=== PATIENT | female | born 1950 | race Caucasian/White ===

== ENCOUNTER → 2019-02-28 08:50 | Outpatient (CLI) | payer MEDICARE, OTHER, SELFPAY ==
--- NOTE | 2019-02-28 | PATH_ITS ---
[facility] Accession Number: [id number] . 01 Material submitted: . breast - RIGHT BREAST MASS 1:00 6 CM FN . 01 Clinical history: . RIGHT BREAST MASS . 02 Diagnosis: Right Breast, Mass At 1 O'Clock, 6 CM FN, Excision: Benign breast parenchyma with adenosis, microcysts, and fibrosis consistent with fibrocystic changes. No evidence of atypical hyperplasia, in-situ or invasive carcinoma. [facility] 03/03/2019 1053 Local . 02 Comment: As part of routine advanced quality engineer, Dr. Pastor also reviewed this case and agrees with the diagnosis. . . . 02 Electronically signed: . Mikaela Calderon MD, Pathologist NPI- [id number] . 01 Gross description: . Received one formalin-filled container, labeled with the patient's name and designated right breast mass 1 o'clock 6 cm FN. The specimen is received with a plastic filter in container, sample loose in container and consists of multiple fragments of yellow-cyr soft tissue which range in size from 0.2 x 0.2 x 0.2 cm to 0.5 x 0.4 x 0.3 cm and clotted blood. The specimen is entirely submitted in one cassette. Collection date: 02/28/19. Collection time per container: 9:46 a.m. Total fixation time: Approximately 38 hours. (DC:[id number]) /[facility] 03/01/2019 0908 Local . 02 Pathologist provided ICD-10: N63.0 . 02 CPT . 718815 Performed at: [address] [facility], [place], [place] [id number] MD Clayton Guo MD Phone: [phone] Performed at: 02 [facility] [place] [address] [place] [id number] MD Mikaela Calderon MD Phone: [phone]
--- NOTE | 2019-02-28 | DI.MG.S_ITS ---
UNILATERAL RIGHT DIGITAL DIAGNOSTIC MAMMOGRAM POST-NEEDLE BIOPSY: 02/28/2019 CLINICAL: Right breast mass. Post clip placement. Comparison is made to exams dated: 01/22/2019 mammogram, 01/21/2019 mammogram, 11/06/2017 mammogram, and 10/23/2016 mammogram - [facility]. There are scattered fibroglandular elements in right breast. There is a marker clip in the appropriate position in the right breast at 1 o'clock middle depth. This marker clip placement is at the biopsy site. IMPRESSION: POST PROCEDURE MAMMOGRAM FOR MARKER PLACEMENT There was a successful marker clip placement in the right breast middle depth. This exam was interpreted at Station ID: [id number]. NOTE: For mammograms, a report in lay terms will be sent to the patient. Approximately 15% of breast malignancies will not be visualized mammographically. In the management of a palpable breast mass, a negative mammogram must not discourage biopsy of a clinically suspicious lesion. Electronically Signed By: Corey Holbrook M.D. sdh/:02/28/2019 16:53:38 ACR BI-RADS Category Post-procedure mammogram for marker placement
--- NOTE | 2019-02-28 | DI.US.S_ITS ---
ULTRASOUND GUIDED BIOPSY RIGHT BREAST USING VACUUM DEVICE WITH MARKING DEVICE INSERTED AND POST MAMMOGRAPHIC AND ULTRASOUND IMAGIN02/28/2019 CLINICAL: Right breast mass. PATIENT CONSENT: Risks (minor bleeding, infection, vasovagal reaction and repeat procedure), benefits and alternatives were explained to the patient and written informed consent was obtained. Correlation is made to exams dated: 02/28/2019 mammogram - [facility], 01/22/2019 mammogram, 01/21/2019 mammogram, 11/06/2017 mammogram, 10/23/2016 mammogram - [facility], and 10/02/2014 mammogram - [facility]. An ultrasound guided biopsy using real-time ultrasound was performed for the concerning 0.6 cm x 0.7 cm x 0.9 cm indistinct oval solid mass located in the right breast at 1 o'clock middle depth. This was described on the previous mammography and ultrasound reports. The skin was prepped in the usual manner. Local anesthetic was administered to the access site. A skin sivan was made in the breast. The abnormality was approached from the lateral aspect. A 13 gauge biopsy needle was placed adjacent to the abnormality under ultrasound guidance. Once the needle was documented to be in the correct location, four specimens were obtained using the Mammotome biopsy system. The patient received additional local anesthetic during the procedure. A Vision marker clip was inserted into the biopsy cavity. A skin closure strip and a sterile dressing were applied to the access site. Post procedure mammographic and ultrasound imaging demonstrates the location device at the targeted area. The specimens were sent to the laboratory for pathological analysis. IMPRESSION: ULTRASOUND GUIDED BIOPSY BENIGN Ultrasound guided biopsy of the 0.6 cm x 0.7 cm x 0.9 cm solid mass in the right breast at 1 o'clock middle depth was successful. Pathology indicates benign adenosis (AD), microcysts, and fibrosis. Pathology results are concordant with imaging findings. A follow-up mammogram and an ultrasound in 6 months is recommended to demonstrate stability. This exam was interpreted at Station ID: [id number]. Corey earl,krg/:03/04/2019 14:48:35
== END ==
PROVIDERS: PCP Nurse Practitioner Family; Visit Provider Family Medicine
DX: N60.21 Fibroadenosis of right breast (principal); N60.31 Fibrosclerosis of right breast
CPT/HCPCS: 19083; 77065

== ENCOUNTER → 2019-10-09 12:30 | Outpatient (CLI) | payer MEDICARE, OTHER, SELFPAY ==
--- NOTE | 2019-10-09 12:56 | DI.MG.S_ITS ---
Patient Name: TREV MORELAND date: 1950 Sex: F Attending Physician: Nikolai Indications: Date: 10/09/2019 12:39 At the request of: BRIAN CAMACHO Procedure: MM diagnostic mammo unilat RT UNILATERAL RIGHT DIGITAL DIAGNOSTIC MAMMOGRAM 3D/2D SHORT-TERM FOLLOWUP: 10/09/2019 CLINICAL: Patient returns for a 6 month follow up of the right breast. Comparison is made to exams dated: 02/28/2019 mammogram - [facility], 01/22/2019 mammogram, and 01/21/2019 mammogram - [facility]. There are scattered fibroglandular elements in right breast. There is irregular equal density architectural distortion with an indistinct margin in the right breast at 1 o'clock middle depth. This is not significantly changed. There is a biopsy clip associated with the architectural distortion. No other significant masses or calcifications are seen in the breast. IMPRESSION: INCOMPLETE: NEEDS ADDITIONAL IMAGING EVALUATION The irregular equal density architectural distortion in the right breast likely represents a previous surgery and is indeterminate. An ultrasound is recommended. This exam was interpreted at Station ID: [id number]. NOTE: For mammograms, a report in lay terms will be sent to the patient. Approximately 15% of breast malignancies will not be visualized mammographically. In the management of a palpable breast mass, a negative mammogram must not discourage biopsy of a clinically suspicious lesion. Electronically Signed By: Clayton denny/monikrad:10/09/2019 13:20:44 Continued Report - Page 2 of 2 Patient Name: TREV MORELAND date: 1950 Sex: F Attending Physician: Nikolai Indications: Date: 10/09/2019 12:39 At the request of: BRIAN CAMACHO Procedure: MM diagnostic mammo unilat RT ACR BI-RADS Category 0: Incomplete 3340F
--- NOTE | 2019-10-09 13:35 | DI.US.S_ITS ---
Patient Name: TREV MORELAND date: 1950 Sex: F Attending Physician: Nikolai Indications: Date: 10/09/2019 14:12 At the request of: BRIAN CAMACHO Procedure: US breast RT limited LIMITED ULTRASOUND OF RIGHT BREAST AND AXILLA: 10/09/2019 CLINICAL: Right breast six month follow-up. Comparison is made to exams dated: 10/09/2019 mammogram, 02/28/2019 ultrasound biopsy, 02/28/2019 mammogram - [facility], 01/22/2019 mammogram, 01/21/2019 mammogram, and 10/23/2016 mammogram - [facility]. Color flow and real-time ultrasound of the right breast 1 o'clock, and axilla regions were performed on the areas of interest. There is a 0.9 cm x 1.1 cm x 1.1 cm irregular mass with indistinct margins in the right breast at 1 o'clock posterior depth. This irregular mass is hypoechoic. This abnormality is not significantly changed in size given differences in technique and correlates with mammography findings. There is linear extension to the skin. Color flow imaging demonstrates that there is adjacent vascularity. No significant abnormalities were seen sonographically in the right axilla. IMPRESSION: BENIGN There is no sonographic evidence of malignancy. The 0.9 cm x 1.1 cm x 1.1 cm irregular mass in the right breast with linear extension to the skin is not significantly changed from the prior study given differences in technique. The associated architectural distortion on mammography also appears stable compared to prior exams. Given the recent benign biopsy, the findings are consistent with post-surgical scar. A 1 year screening mammogram is recommended. This exam was interpreted at Station ID: [id number]. Electronically Signed By: Clayton Odom M.D. ddp/:10/09/2019 14:46:17 letter sent: Normal Exam Continued Report - Page 2 of 2 Patient Name: TREV MORELAND date: 1950 Sex: F Attending Physician: Nikolai Indications: Date: 10/09/2019 14:12 At the request of: BRIAN CAMACHO Procedure: US breast RT limited Ultrasound BI-RADS: 2 Benign
== END ==
PROVIDERS: PCP Nurse Practitioner Family; Referring Provider Nurse Practitioner Family; Visit Provider Nurse Practitioner Family
DX: R92.8 Other abnormal and inconclusive findings on diagnostic imaging of breast (principal); N63.12 Unspecified lump in the right breast, upper inner quadrant
CPT/HCPCS: 76642; 77065; G0279

== ENCOUNTER → 2019-12-06 12:49 | Outpatient (CLI) | payer MEDICARE, OTHER, SELFPAY | PROVIDERS: PCP Nurse Practitioner Family; Visit Provider Student in an Organized Health Care Education/Training Program | DX: R30.0 Dysuria (principal) | CPT/HCPCS: 87077; 87086; 87186 ==

== ENCOUNTER → 2020-03-30 16:11 | Outpatient (CLI) | payer MEDICARE, OTHER, SELFPAY ==
--- NOTE | 2020-03-30 16:12 | DI.MG.S_ITS ---
BILATERAL DIGITAL SCREENING MAMMOGRAM 3D/2D WITH CAD: 03/30/2020 CLINICAL: Routine screening. Family history of breast cancer. Comparison is made to exams dated: 10/09/2019 mammogram, 02/28/2019 mammogram - [facility], 01/22/2019 mammogram, 01/21/2019 mammogram, and 11/06/2017 mammogram - [facility]. There are scattered fibroglandular elements in both breasts. Current study was also evaluated with a Computer Aided Detection (CAD) system. There is a biopsy clip in the right breast. No significant masses, calcifications, or other findings are seen in either breast. There has been no significant interval change. IMPRESSION: NEGATIVE There is no mammographic evidence of malignancy. A 1 year screening mammogram is recommended. This exam was interpreted at Station ID: [id number]. NOTE: For mammograms, a report in lay terms will be sent to the patient. Approximately 15% of breast malignancies will not be visualized mammographically. In the management of a palpable breast mass, a negative mammogram must not discourage biopsy of a clinically suspicious lesion. Electronically Signed By: Jose Antonio randolph/kanchan:03/30/2020 16:45:34 letter sent: Normal Exam ACR BI-RADS Category 1: Negative [id number]
== END ==
PROVIDERS: PCP Nurse Practitioner Family; Referring Provider Nurse Practitioner Family; Visit Provider Nurse Practitioner Family
DX: Z12.31 Encounter for screening mammogram for malignant neoplasm of breast (principal); Z80.3 Family history of malignant neoplasm of breast
CPT/HCPCS: 77063; 77067

== ENCOUNTER → 2021-04-26 08:24 | Outpatient (CLI) | payer MEDICARE, OTHER, SELFPAY ==
--- NOTE | 2021-04-26 | DI.MG.S_ITS ---
BILATERAL DIGITAL SCREENING MAMMOGRAM 3D/2D WITH CAD: 04/26/2021 CLINICAL: Routine screening. Family history of breast cancer. Comparison is made to exams dated: 03/30/2020 mammogram, 10/09/2019 mammogram, 02/28/2019 mammogram - [facility], 01/22/2019 mammogram, 01/21/2019 mammogram, and 11/06/2017 mammogram - [facility]. There are scattered fibroglandular elements in both breasts. Current study was also evaluated with a Computer Aided Detection (CAD) system. There is a biopsy clip in the right breast with stable associated architectural distortion. No significant masses, calcifications, or other findings are seen in either breast. There has been no significant interval change. IMPRESSION: NEGATIVE There is no mammographic evidence of malignancy. A 1 year screening mammogram is recommended. This exam was interpreted at Station ID: [id number]. NOTE: For mammograms, a report in lay terms will be sent to the patient. Approximately 15% of breast malignancies will not be visualized mammographically. In the management of a palpable breast mass, a negative mammogram must not discourage biopsy of a clinically suspicious lesion. Electronically Signed By: Collin Nielsen M.D. aty/:04/26/2021 12:53:13 letter sent: Normal Exam ACR BI-RADS Category 1: Negative 3341F
== END ==
PROVIDERS: PCP Nurse Practitioner Family; Referring Provider Nurse Practitioner Family; Visit Provider Nurse Practitioner Family
DX: Z12.31 Encounter for screening mammogram for malignant neoplasm of breast (principal); Z80.3 Family history of malignant neoplasm of breast
CPT/HCPCS: 77063; 77067

== ENCOUNTER → 2021-12-15 09:31 | Outpatient (CLI) | payer MEDICARE, OTHER, SELFPAY ==
[2021-12-15 11:45] LABS: COVID19 -Nasal RAPID Negative (Negative)
--- NOTE | 2021-12-15 20:31 | DI.NM.S_ITS ---
DATE OF SERVICE: 12/15/2021 PROCEDURE: Pharmacological perfusion study. INDICATION: Dizziness with underlying left bundle branch block. RADIOPHARMACEUTICAL: 25.0 millicurie technetium-99m Myoview IV was injected at stress and 11.9 millicurie technetium-99m Myoview IV was injected at rest. CARDIAC STRESS: The patient underwent IV Lexiscan perfusion study under the supervision of an attending staff using standard intravenous Lexiscan protocol. The patient remained hemodynamically stable. Resting blood pressure 142/80. Baseline rhythm sinus with left bundle branch block. During stress, there were no convincing new ischemic changes seen. Occasional PACs without any complex arrhythmias. The patient had minimal dyspnea, nausea, without any chest discomfort during Lexiscan infusion. No reversal agent was given. RAW DATA: Significant breast shadow was seen. GATED STUDY: Resting LV ejection fraction 78 and stress LV ejection fraction 89 percent without any obvious wall motion abnormalities. Resting end-diastolic volume 85 mL. TID ratio 0.81, which is within normal limits. Lung/heart ratio 0.35, which is within normal limits. MYOCARDIAL PERFUSION SCAN: Stress supine, resting supine and stress prone images were compared to each other. Stress supine and images showed minimally decreased perfusion of anteroapex. Resting supine images revealed small size, mildly decreased perfusion of distal anterior wall, anteroapex, as well as inferoapex. Stress prone images revealed mildly decreased perfusion of anteroapex. No reversible ischemia. CONCLUSION: I will call this study likely a normal myocardial perfusion study. Stress supine images appear better than resting supine images. During stress supine, there is a very small anteroapical defect. The patient has large breast shadow during raw images. There are no wall motion abnormalities. No significant perfusion defect in overall left anterior descending territory. Hence, likely this is a normal myocardial perfusion study. The patient has underlying left bundle branch block. The patient had a perfusion study in 2008, and at that time, also, there was evidence of shifting breast tissue attenuation artifact. Left ventricular function is preserved. Overall low-risk myocardial perfusion scan. Aviva Traylor - YELENA/hosea/radha doc#: [id number]/job#: [id number] dd: 12/15/2021 17:01:00 dt: 12/15/2021 20:07:00 DICTATING MD/COPIES TO: Keli Jewell MD COPIES MNE: REHAN;
== END ==
PROVIDERS: PCP Nurse Practitioner Family; Referring Provider Internal Medicine Cardiovascular Disease; Visit Provider Internal Medicine Cardiovascular Disease
DX: I44.7 Left bundle-branch block, unspecified (principal); R42 Dizziness and giddiness; Z20.822 Contact with and (suspected) exposure to COVID-19
CPT/HCPCS: 78452; 87635; 93017; A9502; J2785

== ENCOUNTER → 2024-01-26 14:58 | Outpatient (CLI) | payer MEDICARE, OTHER, SELFPAY | PROVIDERS: PCP Nurse Practitioner Family; Visit Provider Physician Assistant Surgical | DX: R30.0 Dysuria (principal) | CPT/HCPCS: 87077; 87086; 87186 ==

== ENCOUNTER → 2024-03-11 09:29 | Outpatient (CLI) | payer MEDICARE, OTHER, SELFPAY | PROVIDERS: PCP Nurse Practitioner Family; Visit Provider Physician Assistant | DX: R30.0 Dysuria (principal) | CPT/HCPCS: 87077; 87086; 87147; 87186 ==

== ENCOUNTER → 2024-07-23 14:03 | Outpatient (CLI) | payer MEDICARE, OTHER, SELFPAY ==
--- NOTE | 2024-07-23 14:07 | DI.RAD.S_ITS ---
PROCEDURE: XR DEXA AXIAL SKELETON INDICATIONS: Screening osteoporosis COMPARISON: None. FINDINGS: Lumbar Spine: Bone mineral density 1.003 g/cm2, T score -0.4. Left Femoral Neck: Bone mineral density 0.727 g/cm2, T score -1.1. Left Hip: Bone mineral density 0.861 g/cm2, T score -0.7. Fracture Risk Calculation (when applicable): 10-year fracture risk of a major osteoporotic fracture 21 percent and of a hip fracture 4.5 percent. (T score greater or equal to -1.0 to: NORMAL) (T score from -1.1 to -2.4: OSTEOPENIA) (T score less than or equal to -2.5: OSTEOPOROSIS) IMPRESSION: Osteopenia--- recommend repeat DEXA in 2-3 years for reassessment. Follow-up guidelines as follows: Osteoporosis: Consider a repeat DEXA and Vertebral Fracture Assessment (VFA) exam in 2 years or sooner if medically necessary, to reassess this patient's status. Osteopenia: Consider a repeat DEXA in 2-3 years to reassess this patient's status, or if there is a new clinical indication. Normal: Consider a repeat DEXA in 5 years or sooner, or if there is a new clinical indication. All treatment decisions require clinical judgment and consideration of individual patient factors, including patient preferences, comorbidities, previous drug use, risk factors not captured in the FRAX model (e.g., frailty, falls, vitamin D deficiency, increased bone turnover, interval significant decline in bone density ) and possible under- or over-estimation of fracture risk by FRAX. In addition, the NOF Guide recommends that FDA-approved medical therapies be considered in postmenopausal women and men age >= 50 years with a: * Hip or vertebral (clinical or morphometric) fracture * T-score of <=-2.5 at the spine or hip * Ten-year fracture probability by FRAX of >= 3% for hip fracture or >=20% for major osteoporotic fracture. Dictated by: Ed Bai M.D. on 07/23/2024 at 19:00 Approved by: Ed Bai M.D. on 07/23/2024 at 19:02
== END ==
PROVIDERS: PCP Family Medicine; Referring Provider Family Medicine; Visit Provider Family Medicine
DX: M85.852 Other specified disorders of bone density and structure, left thigh (principal); Z78.0 Asymptomatic menopausal state
CPT/HCPCS: 77080